=== PATIENT | male | born 1955 | race Caucasian/White ===

== ENCOUNTER 2022-05-14 16:59 | Outpatient (CLI) | payer MEDICARE, OTHER ==
--- NOTE | 2022-05-15 00:17 | XRAY Report ---
PROCEDURE: Chest 2 View X-Ray INDICATIONS: NEAR SYNCOPE TECHNIQUE: 2 views of the chest were acquired. COMPARISON: None. FINDINGS: Surgical changes and devices: None. Lungs and pleura: No pleural effusions or pneumothorax. Lungs are clear. Mediastinum: Mediastinal contours are normal. Heart size is normal. Bones and chest wall: No suspicious bony abnormalities. Soft tissues appear unremarkable. IMPRESSION: No acute cardiopulmonary abnormality. Reviewed by: Berny Delgado on 05/14/2022 11:15 PM [facility] Approved by: Berny Delgado on 05/14/2022 11:15 PM [facility] Station ID: [id number]
== END 2022-05-14 17:01 | disposition home or self-care (01) ==
LOC: DI.S 16:59
PROVIDERS: ATTEND Emergency Medicine
DX: R55 Syncope and collapse (principal)